=== PATIENT | female | born 1930 | race Caucasian/White ===

== ENCOUNTER 2016-07-25 13:25 | Outpatient (CLI) | payer MEDICARE, BC ==
--- NOTE | 2016-07-26 16:51 | DEXA Report ---
DEXA SCAN: 07/25/2016 CLINICAL INDICATION: Osteopenia. TECHNIQUE: Dual energy x-ray absorptiometry (DXA) was performed on a [employer] system. Regions measured are the AP spine, femoral neck, and, if needed, forearm. COMPARISON: None. In accordance with the International Society for Clinical Densitometry (ISCD) guidelines, data from previous exams may be reanalyzed using current recommendations and techniques. This is done to allow a more accurate basis for comparison with the current study. FINDINGS: The data for the lumbar spine is as follows: REGION BMD (g/cm/cm) T-SCORE Z-SCORE L1 0.986 -1.2 0.6 L2 1.162 -0.3 1.5 L3 1.156 -0.4 1.4 L4 1.074 -1.0 0.7 TOTAL 1.096 -0.7 1.1 NOTE: All evaluable vertebrae are used for classification. The data for the hip is as follows: REGION BMD (g/cm/cm) T-SCORE Z-SCORE Neck 0.754 -2.0 0.3 TOTAL 0.793 -1.7 0.5 NOTE: The femoral neck or total proximal femur, whichever is lowest, is used for classification. * Denotes significant change at the 95% confidence level. Denotes dissimilar scan types or analysis methods. IMPRESSION: THE WHO CLASSIFICATION BASED ON THE INTERNATIONAL REFERENCE STANDARD IS OSTEOPENIA. THE FRACTURE RISK IS INCREASED. RECOMMENDATION: Patients with diagnosis of osteoporosis or osteopenia should have regular bone mineral density assessment. For those eligible for Medicare, routine testing is allowed once every 2 years. Testing frequency can be increased for patients who have rapidly progressing disease or for those who are receiving medical therapy to restore bone mass. COMMENT: World Health Organization (WHO) definitions for osteoporosis and osteopenia: NORMAL BMD: T-score at -1.0 or higher, fracture risk is low. OSTEOPENIA BMD: T-score between -1.0 and -2.5, fracture risk is increased. OSTEOPOROSIS BMD: T-score at -2.5 or lower, fracture risk high. National Osteoporosis Foundation recommends: 1. Obtain adequate dietary calcium (at least 1200 mg per day) and vitamin D (400 -800 international units per day). 2. Participate, as appropriate, in regular weightbearing and muscle- strengthening exercise. 3. Avoid tobacco use and reduce alcohol and caffeine intake. 4. For more detailed information see the website at www.NOF.org. MTDD
== END 2016-07-25 13:26 | disposition home or self-care (01) ==
LOC: DI 13:25
PROVIDERS: ATTEND Internal Medicine
DX: M85.88 Other specified disorders of bone density and structure, other site (principal)
CPT/HCPCS: 77080

== ENCOUNTER 2016-07-25 13:29 | Outpatient (CLI) | payer MEDICARE, BC | END 2016-07-25 13:30 | disposition home or self-care (01) | DX: Z12.31 Encounter for screening mammogram for malignant neoplasm of breast (principal); Z80.3 Family history of malignant neoplasm of breast ==

== ENCOUNTER 2017-07-24 12:37 | Outpatient (CLI) | payer MEDICARE, BC ==
--- NOTE | 2017-07-25 10:14 | Mammography Report ---
BILATERAL SCREENING MAMMOGRAM: 07/24/2017 COMPARISON: Mammogram 07/25/2016. INDICATION: Screening. TECHNIQUE: Bilateral CC and MLO breast views. FINDINGS: The breast parenchyma is heterogeneously dense which may limit the sensitivity of mammography. No dominant mass, architectural distortion, or concerning cluster of microcalcification is seen. IMPRESSION: 1. BI-RADS CATEGORY 1. NEGATIVE. 2. RECOMMEND ANNUAL SCREENING MAMMOGRAPHY. STANDARD QUALIFYING STATEMENTS: 1. This examination was reviewed with the aid of Computer-Aided Detection (CAD) . 2. A negative or benign imaging report should not delay biopsy if clinically suspicious findings are present. Consider surgical consultation if warranted. More than 5 % of cancers are not identified by imaging. 3. Dense breasts may obscure an underlying neoplasm. TD: 07/25/2017 10:12 MTDLarry
== END 2017-07-24 12:38 | disposition home or self-care (01) ==
LOC: DI 12:37
PROVIDERS: ATTEND Internal Medicine
DX: Z12.31 Encounter for screening mammogram for malignant neoplasm of breast (principal)
CPT/HCPCS: 77067

== ENCOUNTER 2018-08-21 08:00 | Outpatient (CLI) | payer MEDICARE, BC ==
--- NOTE | 2018-08-21 10:50 | Mammography Report ---
Reason: SCREENING MAMMO Procedure Date: 08/21/2018 Accession Number: [id number] / [id number] Procedure: ANATOLY - Screening Mammo w/Javier CPT Code: FULL RESULT: EXAM: Screening Mammo w/Javier DATE: 08/21/2018 8:47 AM CLINICAL HISTORY: Screening mammogram. History of early menses. TECHNIQUE: (B) - Bilateral CC and MLO views were obtained. COMPARISON: 07/24/2017 and 07/25/2016. PARENCHYMAL PATTERN: (D) - The breasts demonstrate heterogeneously dense fibroglandular parenchyma bilaterally. FINDINGS: There are typically benign coarse and typically benign vascular calcifications. There are no suspicious masses, calcifications, or areas of distortion. IMPRESSION: Benign findings. BI-RADS category 2. RECOMMENDATION: (ANNUAL) - Recommend routine annual screening mammography. BI-RADS CATEGORY: (2) - Benign Findings. STANDARD QUALIFYING STATEMENTS: 1. This examination was not reviewed with the aid of Computer-Aided Detection (CAD). 2. A negative or benign imaging report should not preclude biopsy if clinically suspicious findings are present. 3. Dense breasts may obscure an underlying neoplasm. 4. This examination was reviewed with the aid of 3D breast imaging (tomosynthesis).
== END 2018-08-21 08:01 | disposition home or self-care (01) ==
LOC: DI 08:00
PROVIDERS: ATTEND Internal Medicine
DX: Z12.31 Encounter for screening mammogram for malignant neoplasm of breast (principal)
CPT/HCPCS: 77063; 77067

== ENCOUNTER 2018-08-21 08:02 | Outpatient (CLI) | payer MEDICARE, BC ==
--- NOTE | 2018-08-21 11:42 | Ultrasound Report ---
Reason: FH AAA,DISORDER OF BONE, UNSPECIFIED Procedure Date: 08/21/2018 Accession Number: [id number] / [id number] Procedure: US - Aorta Screening CPT Code: FULL RESULT: EXAM: AORTIC DOPPLER ULTRASOUND EXAM DATE: 08/21/2018 09:21 AM. CLINICAL HISTORY: Family history of AAA. Disorder of bone, unspecified. COMPARISON: None. TECHNIQUE: Real-time sonographic imaging of retroperitoneal vascular structures, including color-flow, Doppler flow and spectral analysis was performed by the canal tender. Multiple textiles sales representative static images were saved for review. FINDINGS: Aorta: The abdominal aorta was adequately visualized. No evidence for abdominal aortic aneurysm. Subjectively, there is atherosclerotic disease without ectasia at this time. Aorta: Proxima: Sagittal AP 1.8 cm. Mid: Transverse 1.6 x 1.6 cm. Distal: Transverse 1.8 x 1.7 cm. Caliber: WNL: Yes. Plaque visualized: Yes. Iliacs: Right Iliac: Transverse 0.9 x 1.0 cm. Left Iliac: Transverse 0.9 x 0.9 cm. Iliac Vessels: The visualized proximal common iliac arteries are normal in caliber. Other: None. IMPRESSION: No abdominal aortic aneurysm. RADIA
--- NOTE | 2018-08-22 08:21 | DEXA Report ---
Reason: FH AAA,DISORDER OF BONE, UNSPECIFIED Procedure Date: 08/21/2018 Accession Number: [id number] / [id number] Procedure: DEX - Dexa Spine and/or Hip CPT Code: FULL RESULT: EXAM: Dexa Spine and/or Hip DATE: 08/21/2018 8:59 AM CLINICAL HISTORY: FH AAA, osteopenia TECHNIQUE: Dual energy x-ray absorptiometry (DXA) was performed on a [employer] System. Regions measured are the AP Spine, femoral neck, and if needed forearm. COMPARISON: 07/25/2016 In accordance with the International Society for Clinical Densitometry (ISCD) guidelines, data from previous exams may be reanalyzed using current recommendations and techniques. This is done to allow a more accurate basis for comparison with the current study. FINDINGS: The data for the lumbar spine is as follows: BMD (g/cm/cm) T-SCORE Z-SCORE REGION L1 1.070 -0.5 1.4 L2 1.211 0.1 2.0 L3 1.086 -0.9 0.9 L4 1.018 -1.5 0.4 TOTAL 1.095 -0.7 1.2 NOTE: All evaluable vertebrae are used for classification The data for the hip is as follows: BMD (g/cm/cm) T-SCORE Z-SCORE REGION Neck 0.699 -2.4 0.0 TOTAL 0.758 -2.0 0.4 NOTE: The femoral neck or total proximal femur, whichever is lowest, is used for classification. DXA RESULTS SUMMARY: Spine SCAN DATE AGE BMD CHANGE VS CHANGE VS PREVIOUS PREVIOUS % 08/21/2018 [age] 1.095 -0.001 -0.1 07/25/2016 [age] 1[age]096 * Denotes significant change at the 95% confidence level. Denotes dissimilar scan types or analysis methods. DXA RESULTS SUMMARY: Hip SCAN DATE AGE BMD CHANGE VS CHANGE VS PREVIOUS PREVIOUS % [birth year]21/2018 [age] 0.758 -0.035* -4.4* 07/25/2016 [age] 0.793 * Denotes significant change at the 95% confidence level. Denotes dissimilar scan types or analysis methods. IMPRESSION: THE WHO CLASSIFICATION BASED ON THE INTERNATIONAL REFERENCE STANDARD IS OSTEOPENIA. THE FRACTURE RISK IS INCREASED. RECOMMENDATION: Patients with diagnosis of osteoporosis or osteopenia should have regular bone mineral density assessment. For those eligible for Medicare, routine testing is allowed once every 2 years. Testing frequency can be increased for patients who have rapidly progressing disease or for those who are receiving medical therapy to restore bone mass. COMMENT: World Health Organization (WHO) definitions for osteoporosis and osteopenia: NORMAL BMD: T-score at -1.0 or higher, fracture risk is low OSTEOPENIA BMD: T-score between -1.0 and -2.5, fracture risk is increased. OSTEOPOROSIS BMD: T-score at -2.5 or lower, fracture risk is high. National Osteoporosis Foundation recommends: 1. Obtain adequate dietary calcium (at least 1200 mg per day) and vitamin D (400-800 international units per day). 2. Participate, as appropriate, in regular weightbearing and muscle-strengthening exercise. 3. Avoid tobacco use and reduce alcohol and caffeine intake. 4. For more detailed information see the website at www.NOF.org.
== END 2018-08-21 08:03 | disposition home or self-care (01) ==
LOC: DI 08:02
PROVIDERS: ATTEND Internal Medicine
DX: Z82.49 Family history of ischemic heart disease and other diseases of the circulatory system (principal); M85.88 Other specified disorders of bone density and structure, other site
CPT/HCPCS: 76706; 77080

== ENCOUNTER 2018-12-23 13:19 | Outpatient (CLI) | payer MEDICARE, BC ==
[2018-12-23 13:45] LABS: CALCIUM 9.7 mg/dL (8.5-10.3); CREATININE 0.9 mg/dL (0.4-1.0)
== END 2018-12-23 13:20 | disposition home or self-care (01) ==
LOC: LAB 13:19
PROVIDERS: ATTEND Internal Medicine Cardiovascular Disease
DX: I10 Essential (primary) hypertension (principal); W19.XXXS Unspecified fall, sequela
CPT/HCPCS: 36415; 80048